=== PATIENT | female | born 1980 | race Caucasian/White ===

== ENCOUNTER 2017-05-10 17:08 | Emergency (ER) | payer OTHER ==
[~2017-05-10] VITALS: Ht 160 cm; Wt 86.2 kg
[2017-05-10 18:07] LABS: INFLUENZA A ANTIGEN None Detected (None Detect); INFLUENZA B ANTIGEN None Detected (None Detect)
[2017-05-10] MEDS ORDERED: PROAIR HFA8.5 GM INH (19:03)
[2017-05-10 19:11] VITALS: BP 110/66
== END 2017-05-10 19:12 | disposition home or self-care (01) ==
LOC: M.ERS 17:08
PROVIDERS: Nurse Practitioner Family
DX: J11.1 Influenza due to unidentified influenza virus with other respiratory manifestations (principal); Z87.442 Personal history of urinary calculi; Z90.89 Acquired absence of other organs; Z88.6 Allergy status to analgesic agent